=== PATIENT | female | born 1985 | race Caucasian/White ===

== ENCOUNTER 2016-10-18 13:14 | Emergency (ER) | payer OTHER ==
[~2016-10-18] VITALS: Ht 172.7 cm; Wt 93.3 kg
[~2016-10-18 13:14] MED LIST: 12 HOUR DECONG120 M1 PO; ALBUTEROL2.5 MG/3 M IH; AMPHETAMINE SAL15 MG PO; ANAPROX DS550 M1 PO; BACTRIM,SEPT1 TABLET PO; BUTALB-CAFF-AC1 EACH PO; CHERATUSSIN AC473 ML; CIPRO500 MG PO; FIORICET 50-301 EACH PO; FLEXERIL10 MG PO; FLOVENT 22120 INHALA; GABAPENTIN600 MG PO; HORIZANT300 MG PO; HYDROCODON-ACE1 EAC7; HYDROCODON-ACE1 EAC7 PO; KEFLEX500 MG PO; MAGIC MOUTHWASH1 ML MM; MOBIC15 MG PO; NAPROSYN500 MG PO; NAPROXEN500 M1 PO; NICOTINE PATCH1 EAC2 TD; NOHOMEMEDS; NORCO 5/3251 TABLET PO; OXECTA7.5 MG PO; PEPCID20 MG PO; PREDNISONE20 MG PO; PROAIR HFA8.5 GM; PROMETHAZINE HC25 M1 PO; REGLAN10 MG PO; ROBITUSSIN AC,T10 ML PO; TESSALON PERLE100 MG PO; TOPIRAMATE100 MG PO; TOPIRAMATE50 MG PO; TYLENOL325 MG PR; ULTRAM50 MG PO; ZANTAC150 MG PO; ZITHROMAX250 MG PO; ZOFRAN4 MG PO
[2016-10-18 14:08] LABS: ADD MIUA? YES; BILIRUBIN NEGATIVE; BLOOD LARGE; COLOR YELLOW ((YELLOW)); GLUCOSE (STRIP) NEGATIVE; KETONES NEGATIVE; LEUKOCYTES TRACE; NITRITE NEGATIVE; PROTEIN (STRIP) NEGATIVE; UROBILINOGEN 0.2 MG/DL (0.2-1.0)
[2016-10-18 14:16] LABS: BACTERIA NONE SEEN /HPF; EPITHELIAL CELLS 1+ /HPF; MUCUS TRACE /LPF; RED BLOOD CELLS 0-5 /HPF (0-5); UCUL ADDED? NO; WHITE BLOOD CELLS 0-5 /HPF (0-5)
[2016-10-18 14:18] LABS: HEMATOCRIT 44.2 % (36.0-46.0); MCH 30.7 PG (29.0-34.0); MCHC 33.9 G/DL (30.0-36.0); MCV 90.6 FL (83-99); PLATELET COUNT 252 K/uL (156-360); RBC DIS.WIDTH-CV 12.4 % (11.8-14.6); RED BLOOD COUNT 4.88 M/uL (3.80-5.20); WHITE BLOOD COUNT 6.7 K/uL (4.1-10.2)
[2016-10-18 14:30] LABS: CHLORIDE 107 mEq/L (99-109); POTASSIUM 3.9 mEq/L (3.7-5.4); SODIUM 140 mEq/L (136-147)
[2016-10-18 14:31] LABS: GLUCOSE 107 mg/dL (70-99)
[2016-10-18 14:33] LABS: ANION GAP 9 MEQ/L (2-14)
[2016-10-18 14:35] LABS: GFR ESTIMATE (CALCULATED) > 59 mL/min/
[2016-10-18 14:36] LABS: UREA NITROGEN (BUN) 9 mg/dL (9-23)
[2016-10-18 14:43] LABS: QUANTITATIVE HCG 89.6 MIU/ML
[2016-10-18] MEDS ORDERED: AMOXICILLIN500 MG PO (15:21)
[2016-10-18 15:23] VITALS: BP 116/73
== END 2016-10-18 16:22 | disposition home or self-care (01) ==
LOC: EXP 13:14 → EME 13:14 → EXP 16:22
PROVIDERS: Nurse Practitioner Family
DX: O20.0 Threatened abortion (principal); O99.611 Diseases of the digestive system complicating pregnancy, first trimester; K04.7 Periapical abscess without sinus; K03.81 Cracked tooth; K02.9 Dental caries, unspecified; Z3A.01 Less than 8 weeks gestation of pregnancy; Z87.891 Personal history of nicotine dependence
CPT/HCPCS: 80048; 81003; 83030; 84702; 85027; 86850; 86900; 86901; 99281; 99283; J2790

== ENCOUNTER 2016-11-03 14:44 | Emergency (ER) | payer OTHER ==
[~2016-11-03] VITALS: Ht 170.2 cm; Wt 96.1 kg
[~2016-11-03 14:44] MED LIST changes: +AMOXICILLIN500 MG PO
[2016-11-03 16:53] LABS: MCH 30.9 PG (29.0-34.0); MCHC 33.6 G/DL (30.0-36.0); MCV 91.9 FL (83-99); MEAN PLAT.VOLUME 9.9 uM^3 (9.5-12.4); PLATELET COUNT 253 K/uL (156-360); RBC DIS.WIDTH-CV 12.5 % (11.8-14.6); RBC DIS.WIDTH-SD 41.4 % (39-53); RED BLOOD COUNT 4.57 M/uL (3.80-5.20); WHITE BLOOD COUNT 6.7 K/uL (4.1-10.2)
[2016-11-03 17:07] LABS: CHLORIDE 107 mEq/L (99-109); POTASSIUM 4.2 mEq/L (3.7-5.4); SODIUM 142 mEq/L (136-147)
[2016-11-03 17:08] LABS: GLUCOSE 73 mg/dL (70-99)
[2016-11-03 17:10] LABS: ANION GAP 9 MEQ/L (2-14)
[2016-11-03 17:12] LABS: GFR ESTIMATE (CALCULATED) > 59 mL/min/
[2016-11-03 17:13] LABS: UREA NITROGEN (BUN) 10 mg/dL (9-23)
[2016-11-03] MEDS ORDERED: PERCOCET 5/31 TABLET PO (18:36)
[2016-11-03] MEDS ORDERED: ZOFRAN4 MG PO (18:36)
[2016-11-03 18:56] VITALS: BP 106/62
== END 2016-11-03 18:57 | disposition home or self-care (01) ==
LOC: EME 14:44
PROVIDERS: Physician Assistant
DX: O00.90 Unspecified ectopic pregnancy without intrauterine pregnancy (principal); Z87.891 Personal history of nicotine dependence
CPT/HCPCS: 76801; 80048; 84702; 85027; 86870; 86900; 86901; 86905; 86920; 99281; 99284

== ENCOUNTER 2016-11-11 14:37 | Emergency (ER) | payer OTHER ==
[~2016-11-11] VITALS: Ht 165.1 cm; Wt 95.0 kg
[~2016-11-11 14:37] MED LIST changes: +PERCOCET 5/31 TABLET PO
[2016-11-11 15:35] LABS: EOSINOPHIL (%) 3.6 % (0-5); EOSINOPHIL COUNT 0.2 K/uL (0-0.3); HEMATOCRIT 40.5 % (36.0-46.0); IMMATURE GRANULOCYTE (%) 0.5 % (0.0-0.7); INSTRUMENT ABS NEUTROPHIL CT 3.9 K/uL; LYMPHOCYTE COUNT 1.6 K/uL (1.0-2.8); MCH 30.8 PG (29.0-34.0); MCHC 33.6 G/DL (30.0-36.0); MCV 91.6 FL (83-99); MEAN PLAT.VOLUME 9.7 uM^3 (9.5-12.4); MONOCYTE (%) 8.9 % (3-12); MONOCYTE COUNT 0.6 K/uL (0-0.8); NEUTROPHIL (%) 62.1 % (45-76); NEUTROPHIL COUNT 3.9 K/uL (1.8-6.4); PLATELET COUNT 234 K/uL (156-360); RBC DIS.WIDTH-SD 42.9 % (39-53); RED BLOOD COUNT 4.42 M/uL (3.80-5.20); WHITE BLOOD COUNT 6.3 K/uL (4.1-10.2)
[2016-11-11 18:24] VITALS: BP 122/58
== END 2016-11-11 18:25 | disposition home or self-care (01) ==
LOC: EME 14:37
PROVIDERS: Obstetrics & Gynecology
DX: O00.90 Unspecified ectopic pregnancy without intrauterine pregnancy (principal); R10.31 Right lower quadrant pain; Z87.891 Personal history of nicotine dependence
CPT/HCPCS: 84702; 85025; 86870; 86900; 86901; 86905; 86920; 99281; 99284; J2270; J7030

== ENCOUNTER 2017-01-09 17:24 | Emergency (ER) | payer OTHER ==
[~2017-01-09] VITALS: Ht 172.7 cm; Wt 93.3 kg
[2017-01-09 18:02] LABS: ADD MIUA? YES; BILIRUBIN NEGATIVE; BLOOD MODERATE; COLOR YELLOW ((YELLOW)); GLUCOSE (STRIP) NEGATIVE; KETONES NEGATIVE; LEUKOCYTES NEGATIVE; NITRITE NEGATIVE; PROTEIN (STRIP) NEGATIVE; SPECIFIC GRAVITY 1.015 (1.000-1.030); UROBILINOGEN 0.2 MG/DL (0.2-1.0)
[2017-01-09 18:02] LABS: HEMATOCRIT 46.1 % (36.0-46.0); MCH 29.9 PG (29.0-34.0); MCHC 33.2 G/DL (30.0-36.0); MCV 90.2 FL (83-99); MEAN PLAT.VOLUME 10.2 uM^3 (9.5-12.4); PLATELET COUNT 258 K/uL (156-360); RBC DIS.WIDTH-CV 12.1 % (11.8-14.6); RBC DIS.WIDTH-SD 40.5 % (39-53); RED BLOOD COUNT 5.11 M/uL (3.80-5.20); WHITE BLOOD COUNT 7.1 K/uL (4.1-10.2)
[2017-01-09 18:12] LABS: BACTERIA RARE /HPF; EPITHELIAL CELLS 1+ /HPF; MUCUS TRACE /LPF; RED BLOOD CELLS 0-5 /HPF (0-5); UCUL ADDED? NO; WHITE BLOOD CELLS 0-5 /HPF (0-5)
[2017-01-09 18:16] LABS: CHLORIDE 109 mEq/L (99-109); SODIUM 142 mEq/L (136-147)
[2017-01-09 18:19] LABS: GLUCOSE 98 mg/dL (70-99)
[2017-01-09 18:20] LABS: ANION GAP 8 MEQ/L (2-14)
[2017-01-09 18:21] LABS: TOTAL BILIRUBIN 0.4 mg/dL (0.0-1.0)
[2017-01-09 18:22] LABS: ALKALINE PHOSPHATASE 63 IU/L (3-129); GFR ESTIMATE (CALCULATED) > 59 mL/min/
[2017-01-09 18:23] LABS: UREA NITROGEN (BUN) 9 mg/dL (9-23)
[2017-01-09 18:32] LABS: QUANTITATIVE HCG < 4.0 MIU/ML
[2017-01-09] MEDS ORDERED: NORCO 5/3251 TABLET PO (20:13)
[2017-01-09 20:42] VITALS: BP 101/62
== END 2017-01-09 20:43 | disposition home or self-care (01) ==
LOC: EME 17:24
DX: R10.2 Pelvic and perineal pain (principal); Z87.891 Personal history of nicotine dependence
CPT/HCPCS: 76856; 80053; 81003; 84702; 85027; 99281; 99285

== ENCOUNTER 2017-04-06 20:11 | Emergency (ER) | payer OTHER ==
[~2017-04-06] VITALS: Ht 170.2 cm; Wt 96.8 kg
[2017-04-06 23:05] LABS: INFLUENZA A VIRAL ANTIGEN NEGATIVE; INFLUENZA B VIRAL ANTIGEN NEGATIVE
[2017-04-06] MEDS ORDERED: HYCODAN SYRUP480 ML PO (23:23)
[2017-04-06] MEDS ORDERED: ACYCLOVIR400 MG PO (23:23)
[2017-04-06] MEDS ORDERED: PROVENTIL HFA6.7 GM IH (23:23)
[2017-04-06 23:40] VITALS: BP 121/72
== END 2017-04-07 00:07 | disposition home or self-care (01) ==
LOC: EME 20:11
PROVIDERS: Emergency Medicine
DX: J20.9 Acute bronchitis, unspecified (principal); B00.9 Herpesviral infection, unspecified; F32.9 Major depressive disorder, single episode, unspecified; M41.9 Scoliosis, unspecified; Z87.891 Personal history of nicotine dependence
CPT/HCPCS: 87502; 87651 90; 99281; 99283

== ENCOUNTER 2017-05-12 20:33 | Emergency (ER) | payer OTHER ==
[~2017-05-12] VITALS: Ht 172.7 cm; Wt 99.3 kg
[~2017-05-12 20:33] MED LIST changes: +ACYCLOVIR400 MG PO; +HYCODAN SYRUP480 ML PO; +PROVENTIL HFA6.7 GM IH
[2017-05-12 21:42] LABS: HEMATOCRIT 38.2 % (36.0-46.0); MCH 31.4 PG (29.0-34.0); MCHC 34.8 G/DL (30.0-36.0); MCV 90.3 FL (83-99); MEAN PLAT.VOLUME 9.8 uM^3 (9.5-12.4); PLATELET COUNT 223 K/uL (156-360); RBC DIS.WIDTH-CV 12.6 % (11.8-14.6); RBC DIS.WIDTH-SD 41.4 % (39-53); RED BLOOD COUNT 4.23 M/uL (3.80-5.20); WHITE BLOOD COUNT 9.3 K/uL (4.1-10.2)
[2017-05-12 21:49] LABS: ADD MIUA? NO; BILIRUBIN NEGATIVE; BLOOD NEGATIVE; COLOR STRAW ((YELLOW)); GLUCOSE (STRIP) NEGATIVE; KETONES NEGATIVE; LEUKOCYTES NEGATIVE; NITRITE NEGATIVE; PROTEIN (STRIP) NEGATIVE; SPECIFIC GRAVITY 1.008 (1.000-1.030); UCUL ADDED? NO; UROBILINOGEN 0.2 MG/DL (0.2-1.0)
[2017-05-13 01:09] VITALS: BP 123/85
== END 2017-05-13 01:11 | disposition home or self-care (01) ==
LOC: EME 20:33 → RME 20:33
DX: O20.9 Hemorrhage in early pregnancy, unspecified (principal); Z3A.08 8 weeks gestation of pregnancy; O99.341 Other mental disorders complicating pregnancy, first trimester; F32.9 Major depressive disorder, single episode, unspecified; M41.9 Scoliosis, unspecified; Z87.891 Personal history of nicotine dependence
CPT/HCPCS: 81003; 83030; 84702; 85027; 86850; 86900; 86901; 99281; 99285; J2790

== ENCOUNTER → 2017-09-30 | Outpatient (CLI) | payer OTHER ==
[~2017-09-30] VITALS: Ht 170.2 cm; Wt 103.2 kg
[~2017-09-30] MED LIST changes: +PRENATAL TABLE1 EAC3 PO
[2017-09-30 11:23] VITALS: BP 113/67
== END | disposition home or self-care (01) ==
LOC: IVINF 11:00
DX: Z34.83 Encounter for supervision of other normal pregnancy, third trimester (principal); Z3A.28 28 weeks gestation of pregnancy; Z67.41 Type O blood, Rh negative
CPT/HCPCS: 96372; J2790

== ENCOUNTER 2017-11-20 20:47 | Emergency (ER) | payer OTHER ==
[~2017-11-20] VITALS: Ht 172.7 cm; Wt 108.0 kg
[2017-11-20] MEDS ORDERED: AMOXICILLIN875 MG PO (21:37)
[2017-11-20 22:12] VITALS: BP 121/85
== END 2017-11-20 22:05 | disposition home or self-care (01) ==
LOC: EXP 20:47 → EME 20:47 → EXP 22:05
DX: O99.89 Other specified diseases and conditions complicating pregnancy, childbirth and the puerperium (principal); H66.92 Otitis media, unspecified, left ear; K08.89 Other specified disorders of teeth and supporting structures; Z98.818 Other dental procedure status; Z87.891 Personal history of nicotine dependence; Z3A.35 35 weeks gestation of pregnancy
CPT/HCPCS: 99281; 99283

== ENCOUNTER 2017-12-17 07:01 | Inpatient (IN) | payer OTHER ==
[2017-12-17] VITALS (18 sets, daily range): BP systolic 94–133; BP diastolic 51–77
[~2017-12-17] VITALS: Ht 172.7 cm; Wt 107.3 kg
[~2017-12-17 07:01] MED LIST changes: +AMOXICILLIN875 MG PO
[2017-12-17 09:13] LABS: BASOPHIL (%) 0.2 % (0-1); EOSINOPHIL (%) 1.9 % (0-5); EOSINOPHIL COUNT 0.2 K/uL (0-0.3); HEMATOCRIT 37.1 % (36.0-46.0); HEMOGLOBIN 12.9 G/DL (11.9-15.5); IMMATURE GRANULOCYTE (%) 0.5 % (0.0-0.7); LYMPHOCYTE (%) 16.2 % (15-42); LYMPHOCYTE COUNT 1.5 K/uL (1.0-2.8); MCH 31.2 PG (29.0-34.0); MCHC 34.8 G/DL (30.0-36.0); MCV 89.8 FL (83-99); MONOCYTE (%) 8.5 % (3-12); MONOCYTE COUNT 0.8 K/uL (0-0.8); NEUTROPHIL (%) 72.7 % (45-76); NEUTROPHIL COUNT 6.8 K/uL (1.8-6.4); PLATELET COUNT 174 K/uL (156-360); RBC DIS.WIDTH-CV 13.2 % (11.8-14.6); RED BLOOD COUNT 4.13 M/uL (3.80-5.20); WHITE BLOOD COUNT 9.3 K/uL (4.1-10.2)
[2017-12-17 09:43] LABS: AMPHETAMINE NEGATIVE (500 ng/mL); BARBITURATES NEGATIVE (200 ng/mL); BENZODIAZEPINES NEGATIVE (150 ng/mL); BUPRENORPHINE NEGATIVE (10 ng/mL); COCAINE NEGATIVE (150 ng/mL); METHADONE NEGATIVE (200 ng/mL); METHAMPHETAMINE NEGATIVE (500 ng/mL); OPIATES (MORPHINE) NEGATIVE (100 ng/mL); OXYCODONE NEGATIVE (100 ng/mL); PHENCYCLIDINE NEGATIVE (25 ng/mL); PROPOXYPHENE NEGATIVE (300 ng/mL); THC CANNABINOIDS NEGATIVE (50 ng/mL); TRICYCLIC ANTIDEPRESSANTS NEGATIVE (300 ng/mL)
[2017-12-17] MEDS ORDERED: IBUPROFEN800 MG PO (20:15)
[2017-12-18 23:10] VITALS: BP 110/60
== END 2017-12-19 15:46 | disposition home or self-care (01) | DRG 775 ==
LOC: LDRP-OP 07:01 → 2WEST 07:02 → LDRP-OP 08:16 → 2WEST 19:28 → LDRP-OP 04-13 08:26
PROVIDERS: Obstetrics & Gynecology
DX: O71.4 Obstetric high vaginal laceration alone (principal); E66.9 Obesity, unspecified; O99.214 Obesity complicating childbirth; Z37.0 Single live birth; Z68.33 Body mass index [BMI] 33.0-33.9, adult; Z3A.39 39 weeks gestation of pregnancy; M41.9 Scoliosis, unspecified; O75.89 Other specified complications of labor and delivery; Z87.891 Personal history of nicotine dependence
CPT/HCPCS: 83030; 85025; 86850; 86900; 86901; J0595; J1050; J2790; J7120